=== PATIENT | female | born 1970 | race Asian ===

== ENCOUNTER 2019-06-07 19:08 | Emergency (ER) | payer OTHER ==
[2019-06-07] MEDS: NAPROXEN 500 MG TAB PO (20:30)
[2019-06-07] MEDS ORDERED: traMADol 50 MG TAB PO (20:30)
== END 2019-06-07 20:50 | disposition home or self-care (01) ==
LOC: FTE 19:08
DX: S39.92XA Unspecified injury of lower back, initial encounter (principal); X50.0XXA Overexertion from strenuous movement or load, initial encounter; Y92.89 Other specified places as the place of occurrence of the external cause
CPT/HCPCS: 99282